=== PATIENT | male | born 1940 | race Caucasian/White ===

== ENCOUNTER 2017-12-07 10:16 | Observation (INO) ==
--- NOTE | 2017-12-07 10:46 | Emergency Department Note ---
Disposition Clinical Impression: Chest pain Qualifiers: Chest pain type: unspecified Qualified Code(s): R07.9 - Chest pain, unspecified COPD (chronic obstructive pulmonary disease) Qualifiers: COPD type: unspecified COPD Qualified Code(s): J44.9 - Chronic obstructive pulmonary disease, unspecified Disposition: Admitted As Inpatient Condition: Good Time of Disposition: 11:00 Chest Pain HPI - General Chief Complaint: ED Chest Pain Stated Complaint: chest pain Time Seen by Provider: 12/07/17 10:16 Source: patient Mode of arrival: ambulatory Limitations: no limitations Vital Signs Reviewed: Yes Nursing Notes Reviewed: Yes - History of Present Illness HPI Narrative: Mr. Mg is a 77-year-old man with a history of GI cancer and lymphoma both in remission, COPD s/p radiation, aortic stenosis s/p valve replacement, as well as CAD s/p 3 stents who presents to the ED with substernal chest pain for approximately 7 hours. Patient woke up at around 3 AM and was having some substernal sharp chest pain was nonradiating in nature, at which time he took a nitroglycerin which relieved the pain and he went back to sleep. This morning he woke up and initially felt fine, however after moving around for some time he did develop this chest pain again. He said that he was sitting at the time of onset. At that time he took 3 rounds of nitroglycerin which did help after the third dose. He said that nothing seemed to make this pain better or worse. The only associated symptom that he did admit to is some lightheadedness upon standing. The patient does have history of MIs with stents, and he says that this does not feel like those instances. It was not worsened with exertion or relieved with rest. He does admit to baseline shortness of breath which has worsened over the past 2 months, however was not worsened during this episode. He denies orthopnea, PND. He is not an active chest pain at this time. Significantly, the patient does say that he has been under severe amount of stress over the past 3 weeks due to the of her brother. The patient apparently saw his block cutter approximately 3 weeks ago at which time his stents and aortic valve were evaluated, and he did not have any problems at that time. Severity scale (1-10): 0 - Related Data Home Medications Medication Instructions Recorded Confirmed Levothyroxine [Synthroid] 100 mcg PO DAILY 12/21/15 12/13/17 Multivitamin [Multi-Day Vitamins] 1 each PO DAILY 11/14/15 11/06/17 RX: Aspirin Enteric Coated 81 mg PO DAILY 11/14/15 11/06/17 [Aspirin EC] RX: Indomethacin 50 mg PO TID PRN 11/14/15 11/06/17 RX: Lisinopril [Zestril] 40 mg PO DAILY 11/14/15 11/06/17 RX: Metoprolol [Lopressor] 100 mg PO DAILY 11/14/15 11/06/17 RX: Nitroglycerin [Nitrostat] 0.4 mg SL PRN PRN 11/14/15 11/06/17 Rosuvastatin [Crestor] 20 mg PO BID 11/14/15 11/06/17 Fish Oil 1,000 mg PO TID 03/09/16 11/06/17 Budesonide/Formoterol 160/4.5 2 puff IH BIDR 05/11/16 11/06/17 [Symbicort 160/4.5] Albuterol Sulfate [Albuterol 1 puff IH PRN PRN 11/06/16 11/06/17 Inhaler] Furosemide [Lasix] 20 mg PO DAILY 03/06/17 11/06/17 Hydrochlorothiazide [Microzide] 12.5 mg PO DAILY 11/06/17 11/06/17 Previous Rx's Medication Instructions Recorded Fluticasone Propionate Nasal 1 spray NS DAILY #1 bottle 08/25/17 [Flonase] Allergies Allergy/AdvReac Type Severity Reaction Status Date / Time atorvastatin [From Lipitor] Allergy Cramping Verified 12/07/17 10:22 of the Muscles aspirin [ASA] AdvReac See Verified 12/07/17 10:23 Comments Constitutional: Denies: fever, chills Eyes: Denies: vision change Cardiovascular: Reports: chest pain, dyspnea on exertion. Denies: palpitations , orthopnea, edema, syncope, paroxysmal nocturnal dyspnea Respiratory: Reports: cough, dyspnea, sputum production (Mild, currently at baseline). Denies: wheezes Gastrointestinal: Denies: abdominal pain, nausea, vomiting Genitourinary: Denies: urgency, dysuria Musculoskeletal: Denies: back pain, neck pain Integumentary: Denies: rash Neurological: Denies: headache Psychiatric: Reports: anxiety (Recent of brother) Chest Pain PMH - Past Medical History Medical history: Reports: cancer, COPD, hyperlipidemia, hypertension, myocardial infarction, valvular heart disease Surgical history: Reports: non-contributory Psychiatric history: Reports: no psych history - Social History Smoking Status: Never smoker Alcohol use: Reports: none Drug use: Reports: none Physical Exam Gen.: Vitals noted. No acute distress. AAOx3 HEENT: Normocephalic, atraumatic Neck: Supple. No carotid bruits Cardiac: RRR, 2/6 holostystolic murmur, +S1/S2 Pulmonary: CTA bilaterally, no wheezes, rales or rhonchi, equal chest expansion Abdomen: Moderate distension without any significant tenderness, patient says at baseline Extremities: no BLE edema, nontender calf, no cyanosis or clubbing Psych: Appropriate mood and behavior - General Limitations: no limitations General appearance: alert, in no apparent distress, appears intoxicated Course Vital Signs Temperature 98.1 F 12/07/17 10:23 Pulse Rate 59 12/07/17 10:23 Respiratory Rate 18 12/07/17 10:23 Blood Pressure 145/81 12/07/17 10:23 O2 Sat by Pulse Oximetry 96 12/07/17 10:23 Temperature 98.1 F 12/07/17 12:15 Pulse Rate 59 12/07/17 10:55 Respiratory Rate 18 12/07/17 12:15 Blood Pressure 134/72 12/07/17 12:15 O2 Sat by Pulse Oximetry 98 12/07/17 10:55 Oxygen Delivery Oxygen Delivery Room Air Chest Pain - [facility] Narrative Medical decision making narrative: I reviewed the patient's labs, imaging, medical records. The patient does present with somewhat atypical chest pain that does improve with nitroglycerin. He also says that he has had worsening dyspnea on exertion for the past 3 weeks to 2 months. Patient does have an extensive history of coronary artery disease with history of stents in the past, and he also has valvular disease. EKG on arrival did not demonstrate any obvious indication of ischemia, and his initial troponin was negative. Chest x-ray did show stable cardiomegaly. Given the patient's history, it is concerning for a cardiac event that is in the process of developing. I did give the patient aspirin on arrival, but held nitroglycerin as he was no longer having active chest pain until 3 doses just before coming. I spoke with the patient about admission options and he feels more comfortable coming in to the hospital at this time because the chest pain was concerning to him, which is very reasonable. I spoke with the hospitalist who accepted the patient. - Medical Records Medical records reviewed: Yes I reviewed the patient's medical records. - Lab Data Lab results reviewed: Yes I reviewed the patient's lab results. Result diagrams: 12/07/17 10:34 12/07/17 10:34 Lab Results 12/07/17 12/07/17 12/07/17 Range/Units 10:34 10:34 10:34 WBC 9.7 (4.3-11.1) K/mcL RBC 5.49 (4.19-5.50) M/mcL Hgb 16.2 (12.9-16.9) g/dL Hct 46.8 (37.5-50.1) % MCV 85.2 (83.0-100.0) fL MCH 29.5 (28.0-33.3) pg MCHC 34.6 (31.6-35.5) g/dL RDW 13.0 (11.5-14.5) % Plt Count 150 (140-400) K/mcL MPV 11.2 (9.4-12.4) fL Immature Gran % 0.4 (0-4) % Seg Neutrophils % 58.8 % Lymphocytes % 20.9 % Monocytes % 11.9 % Eosinophils % 7.1 % Basophils % 0.9 % Neutrophils # 5.7 (1.6-8.9) K/mcL Lymphocytes # 2.0 (0.6-4.6) K/mcL Monocytes # 1.2 (0.0-1.3) K/mcL Eosinophils # 0.7 H (0.0-0.6) K/mcL Basophils # 0.1 (0.0-0.2) K/mcL PT 10.9 (9.4-12.1) Seconds INR 1.0 Sodium (136-145) mEq/L Potassium (3.5-5.1) mEq/L Chloride (98-107) mEq/L Carbon Dioxide (23-29) mEq/L BUN (8-23) mg/dL Creatinine (0.70-1.30) mg/dL Est GFR ( Amer) (> 60) Est GFR (Non-Af Amer) (> 60) BUN/Creatinine Ratio (6-26) Glucose (70-105) mg/dL Calculated Osmolality (280-300) Calcium (8.6-10.3) mg/dL Troponin I (< 0.04) ng/mL B-Natriuretic Peptide 101 H (Less than 100) pg/mL 12/07/17 12/07/17 Range/Units 10:34 10:34 WBC (4.3-11.1) K/mcL RBC (4.19-5.50) M/mcL Hgb (12.9-16.9) g/dL Hct (37.5-50.1) % MCV (83.0-100.0) fL MCH (28.0-33.3) pg MCHC (31.6-35.5) g/dL RDW (11.5-14.5) % Plt Count (140-400) K/mcL MPV (9.4-12.4) fL Immature Gran % (0-4) % Seg Neutrophils % % Lymphocytes % % Monocytes % % Eosinophils % % Basophils % % Neutrophils # (1.6-8.9) K/mcL Lymphocytes # (0.6-4.6) K/mcL Monocytes # (0.0-1.3) K/mcL Eosinophils # (0.0-0.6) K/mcL Basophils # (0.0-0.2) K/mcL PT (9.4-12.1) Seconds INR Sodium 138 (136-145) mEq/L Potassium 4.1 (3.5-5.1) mEq/L Chloride 105 (98-107) mEq/L Carbon Dioxide 25 (23-29) mEq/L BUN 25 H (8-23) mg/dL Creatinine 1.20 (0.70-1.30) mg/dL Est GFR ( Amer) > 60 (> 60) Est GFR (Non-Af Amer) 59 L (> 60) BUN/Creatinine Ratio 21 (6-26) Glucose 126 H (70-105) mg/dL Calculated Osmolality 292 (280-300) Calcium 9.7 (8.6-10.3) mg/dL Troponin I < 0.03 (< 0.04) ng/mL B-Natriuretic Peptide (Less than 100) pg/mL - Radiology Data Radiology results reviewed: Yes I reviewed the patient's radiology results. - EKG Data EKG attestation: Yes I reviewed and interpreted this EKG. EKG results narrative: EKG demonstrated electronically paced ventricular rhythm with a rate of 60, QRS duration 190 QTC 472 obvious signs of ischemia Heart Score - Score History: Moderately Suspicious EKG: Normal (Compared to previous) Age: Greater than 65 Risk Factors: Equal/Greater than 3 risk factor or history of atherosclerotic disease Troponin: Less than normal limit HEART Score Total: 5
[2017-12-07] MEDS ORDERED: Aspirin 325 MG TABLET PO ONE (10:50)
[2017-12-07 11:01] LABS: Basophils # 0.1 K/mcL (0.0-0.2); Basophils % 0.9 %; Eosinophils # 0.7 K/mcL (0.0-0.6); Eosinophils % 7.1 %; Hematocrit 46.8 % (37.5-50.1); Hemoglobin 16.2 g/dL (12.9-16.9); Immature Granulocytes % 0.4 % (0-4); Lymphocytes % 20.9 %; Mean Corpuscular HGB Conc 34.6 g/dL (31.6-35.5); Mean Corpuscular Hemoglobin 29.5 pg (28.0-33.3); Mean Corpuscular Volume 85.2 fL (83.0-100.0); Mean Platelet Volume 11.2 fL (9.4-12.4); Monocytes # 1.2 K/mcL (0.0-1.3); Monocytes % 11.9 %; Neutrophils # 5.7 K/mcL (1.6-8.9); Platelet Count 150 K/mcL (140-400); Red Blood Count 5.49 M/mcL (4.19-5.50); Segmented Neutrophils % 58.8 %
--- NOTE | 2017-12-07 11:04 | Emergency Department Note ---
START Narrative - START START: I examined this patient and my medical decision-making was reviewed with the Resident Physician. I agree with the documented findings, disposition and treatment plan as described except to the extent set forth below. 77 year old male with three stents and an artifical valve seocndary to a heart murmur present to the ED wih complaints of midsternal chest jackeline with small radition yovanny the right side without diaphoresis, nausea/vomitting. Howbeer he is experiencing exertional dyspnea thathas been prorgressing over the 3 weeks. In the past 10 days he had an echo and carotid ultrasound. He has pre-existing cardiac risk factors. WE will do cardiopulmonary workup and offer him admission today for further evaluation. ASA given, nitro taken at home which gave moderate relief. currently chest pain free
[2017-12-07 11:07] LABS: Prothrombin Time 10.9 Seconds (9.4-12.1)
[2017-12-07 11:25] LABS: BUN/Creatinine Ratio 21 (6-26); Blood Urea Nitrogen 25 mg/dL (8-23); Calcium 9.7 mg/dL (8.6-10.3); Carbon Dioxide 25 mEq/L (23-29); Chloride 105 mEq/L (98-107); Glucose 126 mg/dL (70-105); Osmolality,Calculated 292 (280-300); Potassium 4.1 mEq/L (3.5-5.1); Sodium 138 mEq/L (136-145); eGFR For African Americans > 60 (> 60); eGFR For Non-African Americans 59 (> 60)
--- NOTE | 2017-12-07 12:49 | Event Note ---
Date of Encounter: 12/07/17 Time of Encounter: 12:44 77/male PCP: Dr. Michelle Background history of diabetes mellitus type 2, hypertension, dyslipidemia, previous history of a non-Hodgkin's lymphoma/colon cancer. Patient is a extensive cardiac history: 3 stents and replacement of aortic wall along with AICD/pacemaker. Patient's clinical informatics physician is from [facility]. Patient came with persistent chest pain for more than 6 hours. Evaluated at emergency room and getting admitted for chest pain to rule out ACS : Heart score 4. Labs: BNP 101, troponin less than 0.03, normal electrolytes and kidney function Assessment: Chest pain possible anginal/nonanginal to rule out acute coronary syndrome Plan: Admit as observation. Resume home medications. Diabetic diet. Cycle troponin. If troponin is elevated then consider cardiac consult Patient recently has echocardiogram/ultrasound carotid [facility] and we need records from them. This procedure was done on 11/22/2017. Plan regarding stress test will be decided after reviewing echocardiogram/ CAROTID REPORTS FROM [facility].
[2017-12-07] MEDS ORDERED: Naloxone 0.4 MG/ML INJ IVP PRN (13:00)
--- NOTE | 2017-12-07 13:23 | Internal Med History&Physical ---
<Max Brown - Last Filed: 12/07/17 20:47> Date of Encounter: 12/07/17 Time of Encounter: 13:13 Assessment and Plan (1) Unstable angina Status: Acute Patient persists today with substernal chest pain that I suspect is due to unstable angina. Chest x-ray unremarkable, initial troponin unremarkable. He has multiple risk factors for ACS including HLD, HTN, MT with 3 stents, CAD. His heart score is 4. He is being admitted her for observation for further workup and evaluation of unstable angina/ACS. He sees a logistics center manager at [facility] in [place] and reports that he recently had a TTE that was unremarkable. He has not had a recent stress test or heart cath. PLAN: - cardiac enzymes x 2 q 6hr - EKG obtained showing a paced rhythm - Continue ASA - Continue home blood pressure medications - O2 by NC to keep SpO2 greater than 92% - CBCD, BMP in AM - Fasting lipids -If troponin elevated consider a cardio consult -obtain records from [facility]. Plan pending review of TTE/ carotid reports from [facility] cardiology (2) HLD (hyperlipidemia) Status: Acute -fasting lipid profile in the morning Qualifiers: Hyperlipidemia type: unspecified Qualified Code(s): E78.5 - Hyperlipidemia , unspecified (3) CAD (coronary artery disease) Status: Acute Resume BB, ASA, statin. -Presents today with unstable angina- see plan above Qualifiers: Coronary Disease-Associated Artery/Lesion type: [place] artery [place] vs. transplanted heart: [place] heart Associated angina: with unstable angina Qualified Code(s): I25.110 - Atherosclerotic heart disease of [place] coronary artery with unstable angina pectoris (4) COPD (chronic obstructive pulmonary disease) Status: Acute Stable. Continue home medications Qualifiers: COPD type: unspecified COPD Qualified Code(s): J44.9 - Chronic obstructive pulmonary disease, unspecified (5) DVT prophylaxis Status: Acute lovenox 40mg SC daily Internal Medicine - H&P: HPI Chief complaint: chest pain Admitted From: Home Plans for Post Hospital Care: Home History of present illness: Mr. Mg is a 77 year old male with a PMH of GI cancer, lymphoma (both in remission), COPD, aortic stenosis s/p bovine valve replacement, CAD, MT with 3- stents, HLD, HTN. He presents today to [facility] with substernal chest pain. He reports that the CP began at approximately 0300 this morning and has continued until just prior to arrival to [facility] ED. He states that he had taken a total of 3 SL nitro tablets before finally achieving relief. The chest pain is substernal and described as an ache, without radiation, and not increased with activity or decreased with rest. He denies any fevers, chills, diaphoresis, nausea, or unilateral extremity swelling/pain. He denies any current CP as of my assessment. He has multiple risk factors and with his clinical presentation there is some concern for ACS. He will be admitted for observation for further workup and monitoring. Past Med Surg Social Fam HX - Past Medical History Medical history: cancer, COPD, hyperlipidemia, hypertension, myocardial infarction, valvular heart disease Psychiatric history: no psych history - Past Surgical History Surgical History: non-contributory - Social History Smoking Status: Never smoker Smokeless Tobacco Status: No Alcohol use: none Drug use: none - Family History Father Living Status: Hx Family Cardiac Disorders: Yes (MT) Mother Living Status: Still Living Brother Living Status: Hx Family Cancer: Yes (prostate) Internal Medicine - H&P: Meds Aspirin Enteric Coated [Aspirin EC] 81 mg PO DAILY 11/14/15 [History] Indomethacin 50 mg PO PRN PRN 11/14/15 [History] Levothyroxine [Synthroid] 100 mcg PO DAILY 11/14/15 [History] Lisinopril [Zestril] 40 mg PO DAILY 11/14/15 [History] Metoprolol [Lopressor] 100 mg PO BID 11/14/15 [History] Multivitamin [Multi-Day Vitamins] 1 each PO DAILY 11/14/15 [History] Nitroglycerin [Nitrostat] 0.4 mg SL PRN PRN 11/14/15 [History] Rosuvastatin [Crestor] 20 mg PO DAILY 11/14/15 [History] Fish Oil 1,000 mg PO TID 03/09/16 [History] Budesonide/Formoterol 160/4.5 [Symbicort 160/4.5] 2 puff IH BIDR 05/11/16 [ History] Albuterol Sulfate [Albuterol Inhaler] 1 puff IH PRN PRN 11/06/16 [History] Furosemide [Lasix] 20 mg PO DAILY 03/06/17 [History] Hydrochlorothiazide [Microzide] 12.5 mg PO DAILY 11/06/17 [History] Fluticasone Propionate Nasal [Flonase] 1 spray NS PRN PRN 12/07/17 [History] 3 Allergy/AdvReac Type Severity Reaction Status Date / Time atorvastatin [From Lipitor] Allergy Cramping Verified 12/07/17 10:22 of the Muscles aspirin [ASA] AdvReac See Verified 12/07/17 10:23 Comments All Systems PM: A 10-system review of systems was performed and is negative for pertinent findings except as documented above in the HPI. Review of systems: REVIEW OF SYSTEMS GENERAL: Negative for any nausea, vomiting, fevers, chills, or weight loss. NEUROLOGIC: Negative for any blurry vision, blind spots, double vision, facial asymmetry, dysphagia, dysarthria, hemiparesis, hemisensory deficits, vertigo, ataxia. HEENT: Negative for any head trauma, neck trauma, neck stiffness, photophobia, phonophobia, sinusitis, rhinitis. CARDIAC: Positive for chest pain, mild dyspnea. Denies paroxysmal nocturnal dyspnea, peripheral edema. PULMONARY: Negative for wheezing, COPD, or TB exposure. Admits to mild SOB and a chronic non-productive cough without changes GASTROINTESTINAL: Negative for any abdominal pain, nausea, vomiting, bright red blood per rectum, melena. GENITOURINARY: Negative for any dysuria, hematuria, incontinence. INTEGUMENTARY: Negative for any rashes, cuts, insect bites. RHEUMATOLOGIC: Negative for any joint pains, photosensitive rashes, history of vasculitis or kidney problems. HEMATOLOGIC: Negative for any abnormal bruising, frequent infections or bleeding. - Constitutional Vitals: Temp Pulse Resp BP Pulse Ox 98.1 F 59 18 134/72 98 12/07/17 12:15 12/07/17 10:55 12/07/17 12:15 12/07/17 12:15 12/07/17 10:55 General appearance: Present: cooperative, A&O X 3, no acute distress, answers questions appropriately - Head Head exam: Present: atraumatic, normocephalic - Neck Neck exam general surgery: Present: supple, trachea midline. Absent: lymphadenopathy - Respiratory Respiratory exam: Present: CTAB. Absent: accessory muscle use, rales, rhonchi, wheezes - Cardiovascular Cardiovascular exam: Present: RRR, +S1, +S2. Absent: diastolic murmur, gallop, rubs, systolic murmur - GI/Abdominal GI/Abdominal exam: Present: normal bowel sounds, soft, no peritoneal signs. Absent: distended, tenderness Additional comments: Round firm abdomen without pain or tenderness. Patient states he has had no increase in abdominal swelling - Extremities Exam Extremities exam: Present: warm, radial pulses palpable and symmetrical. Absent : calf tenderness, cyanotic, pedal edema - Neurological Exam Neurological exam: Present: alert, oriented X3 - Skin Skin exam: Present: dry, intact Internal Med - H&P Results - Labs CBC & Chem 7: 12/07/17 10:34 12/07/17 10:34 - EKG Data -: EKG Interpreted by Myself - EKG Data Prior EKG available for review: yes EKG comments: Ventricular paced rate of 60 12/07/17 13:27 - Diagnostic Studies Chest x-ray Status: image reviewed by me Additional comments: No acute pulmonary process <Olman Maier P - Last Filed: 12/08/17 19:43> Date of Encounter: 12/08/17 Internal Medicine - H&P: HPI History of present illness: Mr. Mg is a 77 year old male All Systems PM: A 10-system review of systems was performed and is negative for pertinent findings except as documented above in the HPI. - Constitutional Vitals: Temp Pulse Resp BP Pulse Ox 98.1 F 75 18 122/69 95 12/08/17 15:35 12/08/17 15:35 12/08/17 15:35 12/08/17 15:35 12/08/17 15:35 Internal Med - H&P Results - Labs CBC & Chem 7: 12/08/17 04:07 12/08/17 04:07 Labs: Short CBC 12/08/17 Range/Units 04:07 WBC 10.4 (4.3-11.1) K/mcL Hgb 16.0 (12.9-16.9) g/dL Hct 46.8 (37.5-50.1) % Plt Count 150 (140-400) K/mcL BMP 12/08/17 04:07 Sodium 139 Potassium 4.1 Chloride 104 Carbon Dioxide 27 BUN 30 H Creatinine 1.19 Glucose 114 H Calcium 9.2 Cardiac Enzymes 12/07/17 Range/Units 22:38 Troponin I < 0.03 (< 0.04) ng/mL - Attending Attestation I examined this patient and my medical decision-making was reviewed with the Resident Physician/PHYSICS TECHNICIAN. I agree with the documented findings, disposition and treatment plan as described except to the extent set forth below.
[2017-12-07] MEDS ORDERED: *HR* Heparin 5,000 UNIT/ML VIAL SQ SCH (18:00)
[2017-12-07] MEDS ORDERED: Nitroglycerin 0.4 MG TAB.SUBL SL PRN (19:41)
[2017-12-07] MEDS ORDERED: Indomethacin 25 MG CAPSULE PO PRN (19:41)
[2017-12-07] MEDS: Metoprolol 100 MG TABLET PO SCH (20:35)
[2017-12-07] MEDS: Fluticasone Propionate Nasal 50 MCG/SPRAY BOTTLE NS SCH (20:35)
[2017-12-07] MEDS: FISH OIL 1000 MG PO SCH (20:36)
[2017-12-07] MEDS: Budesonide/Formoterol 160/4.5 MDI IH SCH (21:18)
[2017-12-08 04:44] LABS: Hematocrit 46.8 % (37.5-50.1); Mean Corpuscular HGB Conc 34.2 g/dL (31.6-35.5); Mean Corpuscular Hemoglobin 29.4 pg (28.0-33.3); Mean Corpuscular Volume 85.9 fL (83.0-100.0); Platelet Count 150 K/mcL (140-400); Red Blood Count 5.45 M/mcL (4.19-5.50); Red Cell Distribution Width 13.1 % (11.5-14.5)
[2017-12-08 05:04] LABS: BUN/Creatinine Ratio 25 (6-26); Blood Urea Nitrogen 30 mg/dL (8-23); Calcium 9.2 mg/dL (8.6-10.3); Carbon Dioxide 27 mEq/L (23-29); Chloride 104 mEq/L (98-107); Glucose 114 mg/dL (70-105); Osmolality,Calculated 295 (280-300); Potassium 4.1 mEq/L (3.5-5.1); Sodium 139 mEq/L (136-145); eGFR For African Americans > 60 (> 60); eGFR For Non-African Americans 60 (> 60)
[2017-12-08 05:06] LABS: Chol/HDL Ratio 3.7 (0-4.9)
[2017-12-08] MEDS ORDERED: *HR* Enoxaparin 40 MG/0.4 ML SYRINGE SQ SCH (06:00)
[2017-12-08] MEDS: Metoprolol 100 MG TABLET PO SCH (08:37)
[2017-12-08] MEDS: Fluticasone Propionate Nasal 50 MCG/SPRAY BOTTLE NS SCH (08:39)
[2017-12-08] MEDS: FISH OIL 1000 MG PO SCH ×2 (08:39→12:43)
[2017-12-08] MEDS ORDERED: hydroCHLOROthiazide 25 MG TABLET PO SCH (09:00)
[2017-12-08] MEDS ORDERED: Lisinopril 20 MG TABLET PO SCH (09:00)
[2017-12-08] MEDS ORDERED: Furosemide 20 MG TABLET PO SCH (09:00)
[2017-12-08] MEDS ORDERED: Aspirin Enteric Coated 81 MG Tablet PO SCH (09:00)
[2017-12-08] MEDS ORDERED: Multivit/Ca/Min/Fe/FA 1 TAB TABLET PO SCH (09:00)
[2017-12-08] MEDS: Budesonide/Formoterol 160/4.5 MDI IH SCH (10:59)
--- NOTE | 2017-12-08 15:34 | Discharge Summary ---
Date of Encounter: 12/08/17 Time of Encounter: 15:25 - Discharge Diagnosis (1) CAD (coronary artery disease) Priority: Primary Status: Acute Comments: hx prior MIs and PCI. Follows with Cardiology at [facility]. Most recent [facility] 09/2016 with 60% lesion to 2nd diagonal. 11/21/2017 TTE with EF 60%, known TAVR, no aortic regurgitation. Now with chest pain that started 2 days prior to arrival. Serial troponin negative. EKG with paced rhythm. No chest pain on exam. Discussed with patient/family at length regarding inpatient stress test/[facility] cardiology consult/transfer to [facility] and patient/family are requesting to be transferred to [facility]. Discussed with [facility] transfer center and patient has been accepted. Of note, patient is part of investigational study at [facility]. Plan to transfer once bed available. Cont ASA, BB, statin Qualifiers: Coronary Disease-Associated Artery/Lesion type: [place] artery [place] vs. transplanted heart: [place] heart Associated angina: with unstable angina Qualified Code(s): I25.110 - Atherosclerotic heart disease of [place] coronary artery with unstable angina pectoris (2) History of aortic valve replacement Priority: Secondary Status: Chronic Comments: hx symptomatically critical aortic stenosis. S/p TAVR 11/13/[address] Valentin at [facility]. 10/2017 TTE with EF 60%, evidence of TAVR, no aortic regurgitation noted. (3) Complete heart block, post-surgical Priority: Secondary Status: Chronic Comments: per [facility] record review, patient went into complete heart block after TAVR; s/p PPM 10/2016. EKG v-paced (4) COPD (chronic obstructive pulmonary disease) Priority: Secondary Status: Chronic Comments: per hx. No evidence of exacerbation. Cont home inhalers Qualifiers: COPD type: unspecified COPD Qualified Code(s): J44.9 - Chronic obstructive pulmonary disease, unspecified (5) Hypothyroidism Priority: Secondary Status: Chronic Comments: per hx. Cont home Levothyroxine Qualifiers: Hypothyroidism type: acquired Qualified Code(s): E03.9 - Hypothyroidism, unspecified - Discharge Medications Home Medications: Aspirin Enteric Coated [Aspirin EC] 81 mg PO DAILY 11/14/15 [History] Indomethacin 50 mg PO PRN PRN 11/14/15 [History] Levothyroxine [Synthroid] 100 mcg PO DAILY 11/14/15 [History] Lisinopril [Zestril] 40 mg PO DAILY 11/14/15 [History] Metoprolol [Lopressor] 100 mg PO BID 11/14/15 [History] Multivitamin [Multi-Day Vitamins] 1 each PO DAILY 11/14/15 [History] Nitroglycerin [Nitrostat] 0.4 mg SL PRN PRN 11/14/15 [History] Rosuvastatin [Crestor] 20 mg PO DAILY 11/14/15 [History] Fish Oil 1,000 mg PO TID 03/09/16 [History] Budesonide/Formoterol 160/4.5 [Symbicort 160/4.5] 2 puff IH BIDR 05/11/16 [ History] Albuterol Sulfate [Albuterol Inhaler] 1 puff IH PRN PRN 11/06/16 [History] Furosemide [Lasix] 20 mg PO DAILY 03/06/17 [History] Hydrochlorothiazide [Microzide] 12.5 mg PO DAILY 11/06/17 [History] Fluticasone Propionate Nasal [Flonase] 1 spray NS PRN PRN 12/07/17 [History] Allergies/Adverse Reactions: 3 Allergy/AdvReac Type Severity Reaction Status Date / Time atorvastatin [From Lipitor] Allergy Cramping Verified 12/07/17 10:22 of the Muscles aspirin [ASA] AdvReac See Verified 12/07/17 10:23 Comments Date of admission: 12/07/17 11:57 Primary care physician: Chanda Juares DO Discharging clinician: Betsy Ulrich Anticipated date of discharge: 12/08/17 - Patient Status Disposition: Transfer Short-Term Hosp Condition: Good Functional capacity at discharge: independent ambulation Overall status at discharge: patient is back to baseline - Discharge Instructions Follow Up With: Chanda Juares DO [Primary Care Provider] - - Diet and Activity Activity: as per physical therapy, increase activity as tolerated Diet: advance to your usual diet Interval History: Seen and examined at bedside. Patient is doing March, information obtained from chart review, patient report an outside hospital record review. No further chest pain since earlier this morning. No shortness of breath. Stated records from [facility] and last left heart catheterization 09/2016 with 60% lesion to second diagonal. Discussed with patient and family at length regarding possible stress or cardiology consultation here at [facility] and both patient and family prefer to be transferred to her side [facility]. Patient has been accepted and will be transferred once bed is available. Hospital course: See assessment and plan for hospital course - Time Spent with Patient Total time spent providing and/or coordinating discharge services: - Constitutional Vitals: Temp Pulse Resp BP Pulse Ox 97.9 F 64 18 120/58 96 12/08/17 11:11 12/08/17 11:11 12/08/17 11:11 12/08/17 11:11 12/08/17 11:11 General appearance: Present: cooperative, A&O X 3, morbidly obese, no acute distress, answers questions appropriately - Head Head exam: Present: atraumatic, normocephalic - Eye Eye exam: Present: PERRL, conjuntiva pink, sclera anicteric Pupils: Present: PERRL - Neck Neck exam general surgery: Present: supple, trachea midline. Absent: lymphadenopathy - Respiratory Respiratory exam: Present: CTAB. Absent: accessory muscle use, rales, rhonchi, wheezes - Cardiovascular Cardiovascular exam: Present: diastolic murmur, RRR, +S1, +S2, systolic murmur. Absent: gallop, rubs Additional comments: + murmur - GI/Abdominal GI/Abdominal exam: Present: normal bowel sounds, soft, no peritoneal signs. Absent: distended, tenderness - Extremities Exam Extremities exam: Present: warm, radial pulses palpable and symmetrical. Absent : calf tenderness, cyanotic, pedal edema - Neurological Exam Neurological exam: Present: CN II-XII intact, oriented X3, no focal deficits. Absent: pronater drift, facial droop, speech deficit - Skin Skin exam: Present: dry, intact
[2017-12-08 15:37] VITALS: BP 122/69
--- NOTE | 2017-12-09 14:29 | Electrocardiograph Report ---
[address] [place], [place] [address] Test Date: 2017-12-07 Pat Name: Valentin Mg Department: 102 Room: 3B Gender: M Director Voice: : [phone] Requested By: Marlene Iniguez Order Number: [id number] Reading MD: Katelyn Stewart Measurements Intervals [place] Rate: 60 P: 58 IA: 197 QRS: -73 QRSD: 190 T: 79 QT: 471 QTc: 472 Interpretive Statements ELECTRONIC VENTRICULAR PACEMAKER ABNORMAL RHYTHM ECG Electronically Signed On 12-09-2017 14:27:31 EST by Katelyn Stewart
== END 2017-12-08 17:50 | disposition short-term general hospital (02) ==
LOC: 3BNU 10:16 → EMEROO 10:16 → 3BNU 12:57
PROVIDERS: ADMIT Registered Nurse; ATTEND Registered Nurse